=== PATIENT | female | born 1995 | race Caucasian/White ===

== ENCOUNTER 2021-03-15 09:32 | Inpatient (IN) | payer BC ==
[2021-03-15 10:09] VITALS: BMI 31.4
[2021-03-15] MEDS ORDERED: Butorphanol Tartrate 1 MG/ML VIAL SLOW IVP PRN (10:19)
[2021-03-15] MEDS ORDERED: Acetaminophen 500 MG TAB PO PRN (10:19)
[2021-03-15] MEDS ORDERED: Lidocaine 1% (PF) 30 ML VIAL SC PRN (10:19)
[2021-03-15] MEDS ORDERED: Ondansetron PF 4 MG/2 ML Vial IVP PRN ×2 (10:19→12:22)
[2021-03-15] MEDS ORDERED: Promethazine HCl 25 MG/ML VIAL IM PRN ×2 (10:19→12:22)
[2021-03-15] MEDS ORDERED: Misoprostol 200 MCG TAB PR PRN (10:23)
[2021-03-15] MEDS ORDERED: HYDROcodone/Acetaminophen 5/325 mg Tablet PO PRN ×2 (10:23)
[2021-03-15] MEDS ORDERED: Carboprost 250 MCG/ML AMP IM PRN (10:23)
[2021-03-15] MEDS ORDERED: Diphenoxylate HCl/Atropine Tablet PO PRN ×2 (10:23)
[2021-03-15] MEDS ORDERED: Ibuprofen 800 MG TAB PO PRN (10:23)
[2021-03-15] MEDS ORDERED: NS w/ Oxytocin 30 units 500 ML IV SCH (10:30)
[2021-03-15] MEDS: Lactated Ringer's 1,000 ML IV SCH ×2 (10:55→12:22)
[2021-03-15] MEDS: hydrALAZINE 20 MG/ML VIAL SLOW IVP PRN ×2 (11:05→22:28)
[2021-03-15 11:28] LABS: Hemoglobin 13.4 g/dL (12.0-15.5); Mean Corpuscular HGB CONC 33.6 g/dL (32.0-36.0); Mean Corpuscular Hemoglobin 29.6 pg (27.0-33.0); Mean Corpuscular Volume 88.1 fl (81.6-98.3); Mean Platelet Volume 10.7 fl (7.4-10.4); Platelet Count 220 10x3/uL (150-450); Red Blood Cell (RBC) Count 4.53 10x6/uL (3.90-5.03); White Blood Cell (WBC) Count 8.3 10x3/uL (3.5-10.5)
[2021-03-15 11:41] LABS: ALT (SGPT) 16 U/L (8-55); AST (SGOT) 25 U/L (5-34); Albumin 3.6 g/dL (3.5-5.0); Alkaline Phosphatase 172 U/L (40-110); Anion Gap 17 mmol/L (10-20); BUN (Urea Nitrogen) 10 mg/dL (7.0-18.7); Bilirubin, Total 0.2 mg/dL (0.2-1.2); Calc. Creatinine Clearance 138 mL/min (70-130); Calcium 8.8 mg/dL (7.8-10.44); Carbon Dioxide 19 mmol/L (22-29); Chloride 104 mmol/L (98-107); Globulin 3.2 g/dL (2.4-3.5); Glucose 94 mg/dL (70-105); Potassium 3.9 mmol/L (3.5-5.1); Protein, Total 6.8 g/dL (6.0-8.3); Sodium 136 mmol/L (136-145)
[2021-03-15] MEDS ORDERED: Fentanyl 2 mcg/Bup 0.1% Cadd 100 ML ONE (11:45)
[2021-03-15 11:57] LABS: Hep B Surf Ag Non-Reactive S/CO (NonReactive); Syphilis Antibody Nonreactive (Nonreactive); Syphilis Antibody Index 0.03 S/CO (<1.00 Non-Reactive)
[2021-03-15 12:12] LABS: SARS-CoV-2 NAA Rapid Test Not Detected (NotDetected)
[2021-03-15 12:18] LABS: HBSAg Index 0.16 S/CO (0-0.99)
[2021-03-15] MEDS ORDERED: Naloxone HCl 0.4 mg/ml Vial IVP PRN ×2 (12:22)
[2021-03-15] MEDS ORDERED: Hydrocerin (Eucerin) Cream 120 gm Jar TOP PRN (12:22)
[2021-03-15] MEDS ORDERED: Acetaminophen 325 MG TAB PO PRN (12:22)
[2021-03-15] MEDS ORDERED: diphenhydrAMINE 50 MG/ML VIAL IVP PRN (12:22)
[2021-03-15] MEDS ORDERED: ePHEDrine Sulfate 50 MG/10 ML VIAL SLOW IVP PRN (12:22)
[2021-03-15] MEDS ORDERED: Lactated Ringer's 500 ML IV PRN (12:22)
[2021-03-15] MEDS ORDERED: Fentanyl 2 mcg/Bupivacaine 0.1% Cassette 100 ML EPIDURAL SCH (12:30)
[2021-03-15] MEDS ORDERED: Communication Order-Pharmacy FS SCH (12:30)
[2021-03-15 12:59] LABS: Creatinine, Urine 87.68 mg/dL (47-110)
[2021-03-15] MEDS: NS w/ Oxytocin 30 units 500 ML IV SCH (22:41)
[2021-03-16] MEDS: NS w/ Oxytocin 30 units 500 ML IV SCH (02:37)
[2021-03-16] MEDS ORDERED: HYDROcodone/Acetaminophen 5/325 mg Tablet PO PRN ×2 (06:34)
[2021-03-16] MEDS ORDERED: Benzocaine-Menthol 82.5 ML CAN TOP PRN (06:34)
[2021-03-16] MEDS ORDERED: NS w/ Oxytocin 30 units 500 ML IV SCH (06:34)
[2021-03-16] MEDS ORDERED: hydrALAZINE 20 MG/ML VIAL SLOW IVP PRN (06:34)
[2021-03-16] MEDS ORDERED: Misoprostol 200 MCG TAB VAG PRN (06:34)
[2021-03-16] MEDS ORDERED: Lanolin Ointment 7 GM TUBE TOP PRN (06:34)
[2021-03-16] MEDS ORDERED: Bisacodyl 10 MG SUPP PR PRN (06:34)
[2021-03-16] MEDS ORDERED: Milk Of Magnesia 30 ML UDCUP PO PRN (06:34)
[2021-03-16] MEDS ORDERED: Boostrix 0.5 ML (Tdap) VIAL IM ONE (06:34)
[2021-03-16] MEDS ORDERED: Ibuprofen 800 MG TAB PO SCH (07:00)
[2021-03-16] MEDS: Lactated Ringer's 1,000 ML IV SCH (07:43)
[2021-03-16] MEDS: Docusate Calcium (SURFAK) 240 MG CAP PO SCH ×2 (09:46→21:19)
[2021-03-16] MEDS: Prenatal Vitamin 1 TAB PO SCH (09:46)
[2021-03-16] MEDS: Ferrous Sulfate 325 MG TAB PO SCH ×2 (09:48→19:13)
[2021-03-16] MEDS: Ibuprofen 800 MG TAB PO SCH ×2 (14:53→21:17)
[2021-03-17] MEDS: Ibuprofen 800 MG TAB PO SCH (05:43)
[2021-03-17] MEDS: Docusate Calcium (SURFAK) 240 MG CAP PO SCH (09:45)
[2021-03-17] MEDS: Prenatal Vitamin 1 TAB PO SCH (09:45)
[2021-03-17] MEDS: Ferrous Sulfate 325 MG TAB PO SCH (09:46)
[2021-03-17 11:52] VITALS: BP 137/88; TEMP 97.8
== END 2021-03-17 13:29 | disposition home or self-care (01) | DRG 807 ==
LOC: CSHLD/OP 09:32 → CSHLD 11:38 → CSHPP 03-16 05:32
PROVIDERS: ADMIT Obstetrics & Gynecology; ATTEND Obstetrics & Gynecology
PROC: 10E0XZZ Delivery of Products of Conception, External Approach (ICD-10-PCS; principal; 2021-03-16)
PROC: 0KQM0ZZ Repair Perineum Muscle, Open Approach (ICD-10-PCS; 2021-03-16)
DX: O48.0 Post-term pregnancy (principal); Z37.0 Single live birth; Z20.822 Contact with and (suspected) exposure to COVID-19; O70.1 Second degree perineal laceration during delivery; Z3A.41 41 weeks gestation of pregnancy
CPT/HCPCS: 36415; 80053; 82570; 84156; 85027; 86780; 86850; 86900; 86901; 87340; J0360; J2590; J7120; U0002

== ENCOUNTER 2022-08-27 14:32 | Emergency (ER) | payer BC ==
[2022-08-27 15:39] LABS: Hemoglobin 13.8 g/dL (12.0-15.5); Mean Corpuscular HGB CONC 34.3 g/dL (32.0-36.0); Mean Corpuscular Hemoglobin 29.9 pg (27.0-33.0); Mean Corpuscular Volume 87.2 fl (81.6-98.3); Mean Platelet Volume 10.8 fl (7.4-10.4); Platelet Count 441 10x3/uL (150-450); RBC Distribution Width 13.2 % (11.5-14.5); Red Blood Cell (RBC) Count 4.61 10x6/uL (3.90-5.03); White Blood Cell (WBC) Count 7.5 10x3/uL (3.5-10.5)
[2022-08-27 15:40] LABS: #Eosinphils 0.1 10x3/uL (0.0-0.5); #Monocytes 0.3 10x3/uL (0.0-1.1); #Neutrophils 4.5 10x3/uL (1.5-8.4); %Basophils 0.5 % (0.0-2.0); %Eosinophils 1.7 % (0.0-6.0); %Lymphocytes 34.6 % (18.0-47.0); %Monocytes 3.5 % (0.0-10.0); %Neutrophils 59.2 % (40.0-75.0)
[2022-08-27 16:14] LABS: ALT (SGPT) 26 U/L (8-55); AST (SGOT) 24 U/L (5-34); Albumin 4.1 g/dL (3.5-5.0); Alkaline Phosphatase 99 U/L (40-110); Anion Gap 13 mmol/L (10-20); BUN (Urea Nitrogen) 12 mg/dL (7.0-18.7); Bilirubin, Total 0.2 mg/dL (0.2-1.2); Calc. Creatinine Clearance 0 mL/min (70-130); Calcium 9.6 mg/dL (7.8-10.44); Carbon Dioxide 25 mmol/L (22-29); Chloride 105 mmol/L (98-107); Estimated GFR 99; Glucose 101 mg/dL (70-105); Potassium 3.9 mmol/L (3.5-5.1); Protein, Total 7.1 g/dL (6.0-8.3); Sodium 139 mmol/L (136-145)
[2022-08-27 16:58] LABS: Bilirubin Neg (Negative); Blood, Urine 250 (Negative); Clarity Clear (Clear); Glucose, Urine (Dipstick) Normal (Negative); Ketone, Urine Negative (Negative); Leukocyte 500 (Negative); Nitrite Negative (Negative); Protein, Urine (Dipstick) Negative (Neg-Trace); Urobilinogen Normal mg/dL (Less than 2); pH, Urine 6.5 (5.0-9.0)
[2022-08-27 17:13] LABS: CAUTI Indications for Culture Pregnancy; WBC/HPF 21-50 HPF (0-3)
[2022-08-27 17:15] LABS: Bacteria/HPF Rare-Few HPF (None Seen); Mucous/LPF Rare LPF (<2+); Renal Epithelial 0-3 HPF (None Seen); Squamous Epithelial 0-3 HPF (0-3)
[2022-08-27 17:16] LABS: Urine Culture Reflex Yes Yes
== END 2022-08-27 19:35 | disposition home or self-care (01) ==
LOC: CSHERS 14:32
DX: O72.1 Other immediate postpartum hemorrhage (principal)
CPT/HCPCS: 76856; 80053; 81001; 85025; 87086; 93005

== ENCOUNTER 2024-03-02 05:40 | Emergency (ER) | payer BC ==
[2024-03-02 06:22] LABS: #Basophils 0.01 10x3/uL (0.0-0.2); #Eosinophils 0.18 10x3/uL (0.0-0.5); #Neutrophils 3.33 10x3/uL (1.5-8.4); %Basophils 0.2 % (0.0-2.0); %Lymphocytes 35.5 % (18.0-47.0); %Monocytes 6.6 % (0.0-10.0); %Neutrophils 54.5 % (40.0-75.0); Hematocrit 39.2 % (34.9-44.5); Mean Corpuscular HGB CONC 33.2 g/dL (32.0-36.0); Mean Corpuscular Hemoglobin 29.1 pg (27.0-33.0); Mean Corpuscular Volume 87.9 fL (81.6-98.3); Mean Platelet Volume 9.5 fL (7.4-10.4); Platelet Count 267 10x3/uL (150-450); RBC Distribution Width 11.9 % (11.5-14.5); Red Blood Cell (RBC) Count 4.46 10x6/uL (3.90-5.03); White Blood Cell (WBC) Count 6.1 10x3/uL (3.5-10.5)
[2024-03-02 06:38] LABS: ALT (SGPT) 9 U/L (8-55); AST (SGOT) 14 U/L (5-34); Albumin 4.1 g/dL (3.5-5.0); Alkaline Phosphatase 59 U/L (40-110); Anion Gap 13 mmol/L (10-20); BUN (Urea Nitrogen) 12 mg/dL (7.0-18.7); Bilirubin, Total 0.2 mg/dL (0.2-1.2); Calc. Creatinine Clearance 0 mL/min (70-130); Calcium 8.7 mg/dL (7.8-10.44); Carbon Dioxide 21 mmol/L (22-29); Chloride 109 mmol/L (98-107); Estimated GFR 109; Globulin 2.5 g/dL (2.4-3.5); Glucose 98 mg/dL (70-105); Potassium 3.9 mmol/L (3.5-5.1); Protein, Total 6.6 g/dL (6.0-8.3); Sodium 139 mmol/L (136-145)
[2024-03-02 07:23] LABS: Bilirubin Neg (Negative); Blood, Urine 250 (Negative); Clarity Cloudy (Clear); Glucose, Urine (Dipstick) Normal (Negative); Ketone, Urine Negative (Negative); Leukocyte Negative (Negative); Nitrite Negative (Negative); Protein, Urine (Dipstick) 30 mg/dl (Neg-Trace); Urobilinogen Normal mg/dL (Less than 2)
[2024-03-02 11:35] LABS: CAUTI Indications for Culture Pregnancy; RBC/HPF Greater than 50 HPF (0-3); Squamous Epithelial 21-50 HPF (0-3); WBC/HPF 0-3 HPF (0-3)
[2024-03-02 11:36] LABS: Bacteria/HPF Rare-Few HPF (None Seen)
[2024-03-02 11:37] LABS: Urine Culture Reflex Yes Yes
== END 2024-03-02 08:17 | disposition home or self-care (01) ==
LOC: CSHERS 05:40
DX: O20.0 Threatened abortion (principal); N93.9 Abnormal uterine and vaginal bleeding, unspecified; Z3A.01 Less than 8 weeks gestation of pregnancy
CPT/HCPCS: 36415; 76856; 80053; 81001; 84702; 85025; 87086